=== PATIENT | male | born 1965 | race Caucasian/White ===

== ENCOUNTER 2022-01-28 09:38 | Outpatient (CLI) | payer OTHER | END 2022-01-28 09:44 | disposition home or self-care (01) | LOC: LAB 09:38 | PROVIDERS: ATTEND Urology | DX: R97.20 Elevated prostate specific antigen [PSA] (principal) ==

== ENCOUNTER 2022-02-06 07:11 | Outpatient (CLI) | payer OTHER | END 2022-02-06 07:20 | disposition home or self-care (01) | LOC: SONOGRAMA 07:11 | PROVIDERS: ATTEND Urology | DX: R97.20 Elevated prostate specific antigen [PSA] (principal) ==